=== PATIENT | female | born 1970 | race Caucasian/White ===

== ENCOUNTER 2018-08-27 10:56 | Emergency (ER) | payer OTHER ==
[~2018-08-27] VITALS: Ht 170.2 cm; Wt 72.7 kg
[2018-08-27] MEDS ORDERED: METF-699 PO (11:08)
[2018-08-27] MEDS ORDERED: LEVO50TA5 PO (11:08)
[2018-08-27] MEDS ORDERED: AUGMENTIN 875 MG TAB PO ONE (11:30)
[2018-08-27] MEDS ORDERED: MECLIZINE 25 MG TABLET PO ONE (11:30)
[2018-08-27 11:50] LABS: BASO % 0.5 % (0.0-1.0); EOS # 0.1 10^3/uL (0.0-0.50); HEMATOCRIT 39.1 % (36.0-47.0); HEMOGLOBIN 12.9 g/dl (12.0-15.5); LYMPH % 23.2 % (24.0-44.0); MEAN CORPUSCULAR HEMOGLOBIN 29.5 pg (27.0-33.0); MEAN CORPUSCULAR VOLUME 89.5 fl (80.0-96.0); MONO # 0.3 10^3/uL (0.0-0.8); MONO % 7.3 % (0.0-5.0); NEUTROPHILS # 2.9 10^3/uL (1.8-7.7); NEUTROPHILS % 65.8 % (36.0-66.0); PLATELET COUNT, AUTOMATED 216 10^3/uL (150-450); RED BLOOD COUNT 4.37 10^6/uL (4.00-5.40); WHITE BLOOD COUNT 4.4 10^3/uL (4.0-10.0)
[2018-08-27 12:00] VITALS: BP 145/87
[2018-08-27 12:09] LABS: HEMOGLOBIN A1c 5.2 %
[2018-08-27 12:12] LABS: BLOOD UREA NITROGEN 20 MG/DL (7-18); CALCIUM LEVEL 8.8 MG/DL (8.5-10.1); CARBON DIOXIDE LEVEL 25 MEQ/L (21-32); CHLORIDE LEVEL 111 MEQ/L (98-107); CREATININE FOR GFR 0.73 MG/DL (0.55-1.30); GLOMERULAR FILTRATION RATE > 60.0 (>58); GLUCOSE, FASTING 103 MG/DL (70-100); POTASSIUM SERUM 4.1 MEQ/L (3.5-5.1); SODIUM LEVEL 145 MEQ/L (136-145)
[2018-08-27 12:14] LABS: ALBUMIN 3.7 GM/DL (3.2-5.2); ALT/SGPT 21 U/L (12-78); BILIRUBIN,DIRECT < 0.1 MG/DL (0.0-0.2); BILIRUBIN,TOTAL 0.3 MG/DL (0.2-1.0); TOTAL PROTEIN 6.4 GM/DL (6.4-8.2)
[2018-08-27] MEDS ORDERED: MECL-86 PO (12:23)
[2018-08-27] MEDS ORDERED: AUGM875T28 PO (12:23)
== END 2018-08-27 13:01 | disposition home or self-care (01) ==
LOC: M ED 10:56
DX: F41.9 Anxiety disorder, unspecified (principal); H66.93 Otitis media, unspecified, bilateral; E11.9 Type 2 diabetes mellitus without complications; Z79.84 Long term (current) use of oral hypoglycemic drugs; Z79.890 Hormone replacement therapy; Z88.5 Allergy status to narcotic agent; Z91.040 Latex allergy status

== ENCOUNTER → 2018-12-28 | Outpatient (REF) | payer OTHER ==
[~2018-12-28] MED LIST: AUGM875T28 PO; LEVO50TA5 PO; MECL-86 PO; METF-699 PO
== END ==
LOC: M SFHCLERA 19:05
PROVIDERS: ATTEND Physician Assistant
DX: N89.8 Other specified noninflammatory disorders of vagina (principal)
CPT/HCPCS: 81002; 81025; 87070; G0463

== ENCOUNTER → 2019-07-27 | Outpatient (CLI) | payer OTHER ==
--- NOTE | 2019-07-27 10:55 | REP ---
FOCUSED RIGHT BREAST SONOGRAPHY: HISTORY: History of several pea-sized lump around the 9-o'clock position in the right breast. History of previous left breast biopsy which was benign. Negative BRCA testing. The patient is on fertility medication and attempting to become . Mammography was not obtained at this juncture as status is unknown. SONOGRAPHIC FINDINGS: The right breast is scanned from 9-o'clock position to 12-o'clock position. At approximate 10-o'clock position, according to the patient, is the area of the palpable lump which has been present for 5-6 days. There is a 6 mm x 7 mm x 4 mm cyst at approximately 12-o'clock position, 2.3 cm from the nipple. At 10-o'clock position, there is a mildly prominent dilated duct. This is anechoic partially compressible and avascular. It is in the superficial soft tissues and is felt to correspond to the palpable lump. It measures 3 mm in greatest thickness x 3 cm in length. IMPRESSION: BIRADS category 2 benign findings. Clinical followup is advised. Bilateral mammography can be performed as a screening study when appropriate in reference to her fertility issues. Electronically Signed by Bobo Alva MD 07/27/2019 12:08 P
== END ==
LOC: M RAD 08:57
PROVIDERS: ATTEND Family Medicine
DX: D24.1 Benign neoplasm of right breast (principal)

== ENCOUNTER → 2019-11-13 | Outpatient (CLI) | payer OTHER ==
--- NOTE | 2019-11-14 08:14 | REP ---
REASON: History of asthma. COMPARISON: No priors. FINDINGS: The superior mediastinal structures are midline. The cardiac silhouette is unremarkable in size, shape, and position. The diaphragmatic surfaces of the lungs are regular, and the costophrenic angles are clear. The pulmonary william are clear. The imaged osseous structures are intact. IMPRESSION: There is no acute cardiopulmonary disease. Electronically Signed by Steven Mcdonald DO 11/14/2019 08:43 A
== END ==
LOC: M LRY 20:03
PROVIDERS: ATTEND Nurse Practitioner Family
DX: J45.901 Unspecified asthma with (acute) exacerbation (principal)
CPT/HCPCS: 71046; G0463

== ENCOUNTER 2019-12-25 10:22 | Emergency (ER) | payer OTHER ==
[~2019-12-25] VITALS: Ht 170.2 cm; Wt 67.0 kg
[2019-12-25] MEDS ORDERED: ZYRTTAB8 PO (10:32)
[2019-12-25] MEDS ORDERED: ASPI81CH33 PO (10:32)
[2019-12-25] MEDS ORDERED: NS 1,000 ML IV ONE (11:15)
[2019-12-25 11:28] LABS: BASO % 0.7 % (0.0-1.0); EOS # 0.3 10^3/uL (0.0-0.5); EOS % 6.7 % (0.0-3.0); HEMATOCRIT 41.9 % (36.0-47.0); LYMPH # 1.2 10^3/uL (1.5-5.0); LYMPH % 29.4 % (24.0-44.0); MEAN CORPUSCULAR HEMOGLOBIN 30.6 pg (27.0-33.0); MEAN CORPUSCULAR HGB CONC 33.4 g/dl (32.0-36.5); MEAN CORPUSCULAR VOLUME 91.5 fl (80.0-96.0); MONO # 0.3 10^3/uL (0.0-0.8); MONO % 6.7 % (0.0-5.0); NEUTROPHILS # 2.3 10^3/uL (1.5-8.5); NEUTROPHILS % 56.3 % (36.0-66.0); PLATELET COUNT, AUTOMATED 226 10^3/uL (150-450); RED BLOOD COUNT 4.58 10^6/uL (4.00-5.40); WHITE BLOOD COUNT 4.1 10^3/uL (4.0-10.0)
[2019-12-25 11:29] LABS: APPEARANCE, URINE CLOUDY (CLEAR); BACTERIA, URINE AUTO NEGATIVE (NEGATIVE); BILIRUBIN, URINE AUTO NEGATIVE (NEGATIVE); BLOOD, URINE BLOOD 3+ (NEGATIVE); COLOR, URINE AMBER (YELLOW); GLUCOSE, URINE (UA) AUTO NEGATIVE (NEGATIVE); KETONE, URINE AUTO TRACE mg/dL (NEGATIVE); LEUKOCYTE ESTERASE, URINE AUTO NEGATIVE (NEGATIVE); NITRITE, URINE AUTO NEGATIVE (NEGATIVE); PROTEIN, URINE AUTO 1+ mg/dL (NEGATIVE); RBC, URINE AUTO TNTC /HPF (0-3); SQUAMOUS EPITHELIAL CELL UR AU 1 /HPF (0-6); UROBILINOGEN, URINE AUTO 0.2 mg/dL (0.0-2.0); WBC, URINE AUTO 129 /HPF (0-3)
[2019-12-25 11:47] LABS: HCG, SERUM QUALITATIVE NEGATIVE (NEGATIVE)
--- NOTE | 2019-12-25 12:51 | REP ---
PELVIC ULTRASOUND: Real-time sonographic evaluation of the pelvis performed utilizing transabdominal and endovaginal technique. Bladder measures 5.0 x 4.0 x 9.3 cm. Uterus measures 8.6 x 5.6 x 6.9 cm. Endometrial thickness is 12 mm. There is a tiny amount of endometrial fluid measuring 3 mm in thickness. Ovaries are normal in size and echotexture, right ovary measuring 2.8 x 1.7 x 1.9 cm and left ovary 2.7 x 1.5 x 2.4 cm. There is no adnexal mass or free fluid. There is no evidence of ovarian torsion with duplex Doppler evaluation. IMPRESSION: Tiny amount of endometrial fluid. Otherwise, negative pelvic ultrasound with no mass or free fluid. No torsion. Electronically Signed by Nhan Coley MD 12/25/2019 04:50 P
[2019-12-25 13:12] VITALS: BP 128/68
[2019-12-25 13:47] LABS: CHLAMYDIA DNA AMPLIFICATION NEGATIVE (NEGATIVE); GC DNA AMPLIFICATION NEGATIVE (NEGATIVE)
== END 2019-12-25 13:13 | disposition home or self-care (01) ==
LOC: M ED 10:22
DX: N93.8 Other specified abnormal uterine and vaginal bleeding (principal); E11.9 Type 2 diabetes mellitus without complications; J45.909 Unspecified asthma, uncomplicated; E28.2 Polycystic ovarian syndrome; E06.3 Autoimmune thyroiditis; Z87.891 Personal history of nicotine dependence; Z88.5 Allergy status to narcotic agent; Z88.6 Allergy status to analgesic agent; Z91.040 Latex allergy status; Z79.899 Other long term (current) drug therapy; Z79.84 Long term (current) use of oral hypoglycemic drugs; Z79.82 Long term (current) use of aspirin

== ENCOUNTER 2020-01-23 11:55 | Emergency (ER) | payer OTHER ==
[~2020-01-23 11:55] MED LIST changes: +ASPI81CH33 PO; -METF-699 PO; +METF-817 PO; +ZYRTTAB8 PO
[2020-01-23 12:33] LABS: BASO % 0.4 % (0.0-1.0); EOS # 0.1 10^3/uL (0.0-0.5); EOS % 2.3 % (0.0-3.0); HEMATOCRIT 39.9 % (36.0-47.0); HEMOGLOBIN 13.4 g/dl (12.0-15.5); LYMPH # 1.1 10^3/uL (1.5-5.0); LYMPH % 22.5 % (24.0-44.0); MEAN CORPUSCULAR HEMOGLOBIN 30.3 pg (27.0-33.0); MEAN CORPUSCULAR HGB CONC 33.6 g/dl (32.0-36.5); MEAN CORPUSCULAR VOLUME 90.3 fl (80.0-96.0); MONO # 0.3 10^3/uL (0.0-0.8); MONO % 5.5 % (0.0-5.0); NEUTROPHILS # 3.3 10^3/uL (1.5-8.5); NEUTROPHILS % 69.1 % (36.0-66.0); PLATELET COUNT, AUTOMATED 205 10^3/uL (150-450); RED BLOOD COUNT 4.42 10^6/uL (4.00-5.40); WHITE BLOOD COUNT 4.7 10^3/uL (4.0-10.0)
[2020-01-23 12:57] LABS: BILIRUBIN,DIRECT 0.1 MG/DL (0.0-0.2); BILIRUBIN,TOTAL 0.4 MG/DL (0.2-1.0); TOTAL PROTEIN 6.6 GM/DL (6.4-8.2)
[2020-01-23] MEDS ORDERED: KETOROLAC 30 MG/ML 1ML VIAL IV ONE ×2 (13:45→15:45)
[2020-01-23] MEDS ORDERED: NS 1,000 ML IV ONE (13:45)
[2020-01-23] MEDS ORDERED: ONDANSETRON 4MG/2ML VIAL IV ONE (13:45)
[2020-01-23] MEDS ORDERED: ISOVUE-370 76% 100ML VIAL As Ordered ONE (13:57)
--- NOTE | 2020-01-23 14:31 | REP ---
Clinical: Acute right lower quadrant and periumbilical pain. Technique: Axial contrast enhanced images from the lung bases to the pubic symphysis using 100 ml Isovue 370 intravenous contrast material with coronal and sagittal re-formations. Findings: Lung bases are clear. Visualized heart and pericardium normal. Liver, spleen, pancreas, gallbladder, bilateral adrenal glands and kidneys are normal. The enteric system is without obstruction or acute inflammatory process. Moderate fecal stasis and possible constipation cannot be excluded. Normal terminal ileum, cecum and appendix identified in the right lower quadrant. Pelvis demonstrates normal bladder and age-appropriate uterus/adnexa. Small amount of free fluid in the pelvis likely physiologic and related to menstrual cycle. No ascites. No free air. No adenopathy. Abdominal aorta without aneurysm or dissection. Musculoskeletal structures are grossly intact. Impression: 1. No acute abdominopelvic pathology appreciated. 2. Normal right lower quadrant structures including appendix. Electronically Signed by Shashi Kate MD 01/23/2020 02:22 P
--- NOTE | 2020-01-23 16:28 | REP ---
PELVIC SONOGRAPHY: HISTORY: Right-sided pain. History of endometriosis, polycystic ovary syndrome, history of polyps. Comparison pelvic sonography December 25, 2019 showed a small amount of endometrial fluid. FINDINGS: Transabdominal and transvaginal scanning are performed. Uterine dimensions are 9.6 x 5.8 x 6.0 cm. Endometrial echo is 0.3 cm thick. Uterus is somewhat retroverted. The visualized bladder watts are smooth. There is a small amount of complex fluid again seen within the endometrium. There is a 2 mm echogenic focus in the endometrium which is felt to be insignificant. No free fluid in the cul-de-sac. The right ovary measures 2.6 x 2.2 x 2.2 cm. Left ovarian dimensions are 3.8 x 1.8 x 2.1 cm. IMPRESSION: Retroverted slightly prominent uterus with a small quantity of endometrial fluid. Otherwise negative. Electronically Signed by Bobo Alva MD 01/23/2020 05:22 P
[2020-01-23 17:09] VITALS: BP 127/67
== END 2020-01-23 17:20 | disposition home or self-care (01) ==
LOC: M ED 11:55
DX: R10.31 Right lower quadrant pain (principal); R11.2 Nausea with vomiting, unspecified; E11.9 Type 2 diabetes mellitus without complications; E28.2 Polycystic ovarian syndrome; E03.9 Hypothyroidism, unspecified; Z79.899 Other long term (current) drug therapy; Z79.82 Long term (current) use of aspirin; Z79.890 Hormone replacement therapy; Z88.5 Allergy status to narcotic agent; Z88.8 Allergy status to other drugs, medicaments and biological substances; Z91.040 Latex allergy status; Z87.891 Personal history of nicotine dependence
CPT/HCPCS: 74177; 76830; 76856; 80047; 80076; 81001; 83690; 84702; 85025; 93976; 96361; 96374; 96375; 96376; 99284; J1885; J2405; Q9967

== ENCOUNTER 2022-01-20 08:29 | Day surgery (SDC) | payer OTHER ==
[~2022-01-20] VITALS: Ht 171.4 cm; Wt 72.3 kg
[~2022-01-20 08:29] MED LIST changes: +FLON1SPR; +KETOROLAC 60MG 2ML VIAL As Ordered ONE; +LIDOCAINE 2% 100MG/5ML SDV (FOR ANES.) As Ordered ONE; +MIDAZOLAM INJ 2MG/2ML VIAL (J2250 PER 1MG) As Ordered ONE; +ONDANSETRON 4MG/2ML VIAL As Ordered ONE; +PROAAER10 INH; +SYNT75TA PO; +dexameTHASONE 4 MG/ML 1ML VIAL (J1100 PER 1MG) As Ordered ONE; +fentaNYL 100 MCG/2 ML INJECTION As Ordered ONE; +propofoL 200 MG/20 ML VIAL As Ordered ONE
[2022-01-20] MEDS ORDERED: LR 1,000 ML IV SCH ×2 (09:00→13:50)
[2022-01-20 09:01] LABS: HEMATOCRIT 36.4 % (36.0-47.0); HEMOGLOBIN 11.9 g/dl (12.0-15.5); MEAN CORPUSCULAR HEMOGLOBIN 27.9 pg (27.0-33.0); MEAN CORPUSCULAR HGB CONC 32.7 g/dl (32.0-36.5); MEAN CORPUSCULAR VOLUME 85.2 fl (80.0-96.0); PLATELET COUNT, AUTOMATED 190 10^3/uL (150-450); RED BLOOD COUNT 4.27 10^6/uL (4.00-5.40); WHITE BLOOD COUNT 5.5 10^3/uL (4.0-10.0)
[2022-01-20] MEDS ORDERED: SILVER NITRATE APPLICATOR (1 = QTY 10) As Ordered ONE (11:44)
[2022-01-20] MEDS ORDERED: LIDOCAINE 1% SDV 30ML VIAL As Ordered ONE (11:44)
[2022-01-20] MEDS ORDERED: ACETAMINOPHEN 1000MG 100ML IV BTL (OFIRMEV) (J0131 PER 10MG) As Ordered ONE (12:11)
[2022-01-20] MEDS ORDERED: ONDANSETRON 4MG/2ML VIAL IV PRN (12:55)
[2022-01-20] MEDS ORDERED: fentaNYL 100 MCG/2 ML INJECTION IV PRN (12:55)
[2022-01-20 13:30] VITALS: BP 112/70
== END 2022-01-20 14:00 | disposition home or self-care (01) ==
LOC: M SDC 08:29
PROVIDERS: ATTEND Obstetrics & Gynecology
DX: N85.8 Other specified noninflammatory disorders of uterus (principal); E28.2 Polycystic ovarian syndrome; J45.909 Unspecified asthma, uncomplicated; E11.9 Type 2 diabetes mellitus without complications; L30.9 Dermatitis, unspecified; E06.3 Autoimmune thyroiditis; Z88.5 Allergy status to narcotic agent; Z91.040 Latex allergy status; Z79.899 Other long term (current) drug therapy; Z79.890 Hormone replacement therapy
CPT/HCPCS: 36415; 58558; 81025; 85027; 86850; 86900; 86901; 88305; J0131; J1100; J1885; J2250; J2405; J3010

== ENCOUNTER → 2023-01-28 | Outpatient (CLI) | payer OTHER ==
[~2023-01-28] MED LIST changes: -KETOROLAC 60MG 2ML VIAL As Ordered ONE; -LIDOCAINE 2% 100MG/5ML SDV (FOR ANES.) As Ordered ONE; -MIDAZOLAM INJ 2MG/2ML VIAL (J2250 PER 1MG) As Ordered ONE; -ONDANSETRON 4MG/2ML VIAL As Ordered ONE; -dexameTHASONE 4 MG/ML 1ML VIAL (J1100 PER 1MG) As Ordered ONE; -fentaNYL 100 MCG/2 ML INJECTION As Ordered ONE; -propofoL 200 MG/20 ML VIAL As Ordered ONE
== END ==
LOC: M WHC 13:48
PROVIDERS: ATTEND Internal Medicine Hematology & Oncology
DX: C50.411 Malignant neoplasm of upper-outer quadrant of right female breast (principal); Z79.818 Long term (current) use of other agents affecting estrogen receptors and estrogen levels

== ENCOUNTER → 2023-02-01 | Outpatient (CLI) | payer OTHER | LOC: M ONCR 13:48 | PROVIDERS: ATTEND General Practice | DX: C50.411 Malignant neoplasm of upper-outer quadrant of right female breast (principal); C77.3 Secondary and unspecified malignant neoplasm of axilla and upper limb lymph nodes; E03.9 Hypothyroidism, unspecified; E11.9 Type 2 diabetes mellitus without complications; Z71.2 Person consulting for explanation of examination or test findings; Z79.51 Long term (current) use of inhaled steroids; Z79.890 Hormone replacement therapy; Z79.899 Other long term (current) drug therapy; Z88.5 Allergy status to narcotic agent; Z88.8 Allergy status to other drugs, medicaments and biological substances; Z87.891 Personal history of nicotine dependence; Z91.040 Latex allergy status; Z92.21 Personal history of antineoplastic chemotherapy ==

== ENCOUNTER → 2023-03-07 | Outpatient (RCR) | payer OTHER | LOC: M ONCR 02-16 09:46 | PROVIDERS: ATTEND General Practice | DX: C50.411 Malignant neoplasm of upper-outer quadrant of right female breast (principal) ==

== ENCOUNTER 2023-04-01 08:26 | Outpatient (RCR) | payer OTHER ==
[~2023-04-01 08:26] MED LIST changes: +FLUO15CR3 TOP
== END 2023-04-07 ==
LOC: M ONCR 08:26
PROVIDERS: ATTEND General Practice
DX: Z51.0 Encounter for antineoplastic radiation therapy (principal); C50.411 Malignant neoplasm of upper-outer quadrant of right female breast

== ENCOUNTER → 2023-10-04 | Outpatient (CLI) | payer OTHER | LOC: M ONCR 08:49 | PROVIDERS: ATTEND General Practice | DX: Z08 Encounter for follow-up examination after completed treatment for malignant neoplasm (principal); Z85.3 Personal history of malignant neoplasm of breast; R22.2 Localized swelling, mass and lump, trunk; Z71.2 Person consulting for explanation of examination or test findings; Z79.51 Long term (current) use of inhaled steroids; Z79.811 Long term (current) use of aromatase inhibitors; Z79.899 Other long term (current) drug therapy; Z87.891 Personal history of nicotine dependence; Z88.5 Allergy status to narcotic agent; Z88.8 Allergy status to other drugs, medicaments and biological substances; Z91.040 Latex allergy status; Z92.21 Personal history of antineoplastic chemotherapy; Z92.3 Personal history of irradiation; Z98.890 Other specified postprocedural states ==

== ENCOUNTER 2024-02-17 12:52 | Day surgery (SDC) | payer OTHER ==
[~2024-02-17] VITALS: Ht 170.2 cm; Wt 82.1 kg
[~2024-02-17 12:52] MED LIST changes: +EXEM25TA PO; +JANU25TA PO; +TRUL10IN SC
[2024-02-17] MEDS ORDERED: LR 1,000 ML IV SCH ×2 (13:20→15:35)
[2024-02-17] MEDS ORDERED: fentaNYL 100 MCG/2 ML INJECTION As Ordered ONE (14:58)
[2024-02-17] MEDS ORDERED: MIDAZOLAM INJ 2MG/2ML VIAL As Ordered ONE (14:58)
[2024-02-17] MEDS ORDERED: ONDANSETRON 4MG 2ML VIAL As Ordered ONE (14:59)
[2024-02-17] MEDS ORDERED: propofoL 200 MG/20 ML VIAL As Ordered ONE (14:59)
[2024-02-17] MEDS ORDERED: LIDOCAINE 2% 100MG/5ML SDV (FOR ANES.) As Ordered ONE (14:59)
[2024-02-17] MEDS ORDERED: ACETAMINOPHEN 1000MG 100ML IV BAG As Ordered ONE (15:15)
[2024-02-17] MEDS: CIPRODEX OTIC SUSP 7.5ML As Ordered ONE (15:22)
[2024-02-17] MEDS ORDERED: KETOROLAC 60MG 2ML VIAL As Ordered ONE (15:24)
[2024-02-17] MEDS ORDERED: ONDANSETRON 4MG 2ML VIAL IV PRN (15:35)
[2024-02-17] MEDS ORDERED: fentaNYL 100 MCG/2 ML INJECTION IV PRN (15:35)
[2024-02-17 16:30] VITALS: BP 150/81; TEMP 99.2; O2SAT 98
== END 2024-02-17 17:30 | disposition home or self-care (01) ==
LOC: M SDC 12:52
PROVIDERS: ATTEND Otolaryngology
DX: H66.3X3 Other chronic suppurative otitis media, bilateral (principal); E03.9 Hypothyroidism, unspecified; F41.9 Anxiety disorder, unspecified; F43.10 Post-traumatic stress disorder, unspecified; J45.909 Unspecified asthma, uncomplicated; Z85.3 Personal history of malignant neoplasm of breast; Z92.21 Personal history of antineoplastic chemotherapy; Z79.899 Other long term (current) drug therapy; Z88.1 Allergy status to other antibiotic agents; Z91.040 Latex allergy status; Z88.5 Allergy status to narcotic agent; Z11.9 Encounter for screening for infectious and parasitic diseases, unspecified
CPT/HCPCS: 69436; J0131; J1100; J1885; J2250; J2405; J3010

== ENCOUNTER → 2024-04-03 | Outpatient (CLI) | payer OTHER | LOC: M ONCR 08:51 | PROVIDERS: ATTEND General Practice | DX: Z08 Encounter for follow-up examination after completed treatment for malignant neoplasm (principal); Z85.3 Personal history of malignant neoplasm of breast; Z79.818 Long term (current) use of other agents affecting estrogen receptors and estrogen levels; Z79.84 Long term (current) use of oral hypoglycemic drugs; Z79.85 Long-term (current) use of injectable non-insulin antidiabetic drugs; Z87.891 Personal history of nicotine dependence; Z88.5 Allergy status to narcotic agent; Z88.1 Allergy status to other antibiotic agents; Z91.040 Latex allergy status; Z92.21 Personal history of antineoplastic chemotherapy; Z92.3 Personal history of irradiation; Z98.890 Other specified postprocedural states ==

== ENCOUNTER → 2025-04-12 | Outpatient (CLI) | payer OTHER ==
[~2025-04-12] MED LIST changes: +METF-1156 PO; -METF-817 PO
== END ==
LOC: M ONCR 09:30
PROVIDERS: ATTEND General Practice
DX: Z08 Encounter for follow-up examination after completed treatment for malignant neoplasm (principal); Z85.3 Personal history of malignant neoplasm of breast; Z98.890 Other specified postprocedural states; Z92.21 Personal history of antineoplastic chemotherapy; Z92.3 Personal history of irradiation; Z79.818 Long term (current) use of other agents affecting estrogen receptors and estrogen levels; Z79.84 Long term (current) use of oral hypoglycemic drugs; Z79.85 Long-term (current) use of injectable non-insulin antidiabetic drugs; Z79.899 Other long term (current) drug therapy; Z88.1 Allergy status to other antibiotic agents; Z88.5 Allergy status to narcotic agent; Z91.040 Latex allergy status; Z87.891 Personal history of nicotine dependence